=== PATIENT | female | born 1980 | race Caucasian/White ===

== ENCOUNTER → 2018-02-18 07:46 | Outpatient (CLI) | payer MEDICAID ==
[2009-12-10 05:17] VITALS: BMI 32.7
[~2018-02-18 07:46] MED LIST: PRENAVITE1 TAB PO; PROTONIX40 MG
[2018-02-18 08:16] LABS: APPEARANCE HAZY (CLEAR); BILIRUBIN NEGATIVE (NEGATIVE); COLOR YELLOW (YELLOW); GLUCOSE 50 mg/dL (NEGATIVE); KETONE NEGATIVE (NEGATIVE); NITRITE NEGATIVE (NEGATIVE); PROTEIN NEGATIVE (NEGATIVE); UROBILINOGEN NORMAL (NORMAL)
[2018-02-18 08:24] LABS: BACTERIA MANY /hpf (NONE SEEN); EPITHELIAL CELLS 0-5 /hpf (0-5); RED CELLS - URINE RARE /hpf (0-5); WHITE CELLS - URINE 0-5 /hpf (0-5)
[2018-02-18 08:25] LABS: HYALINE CAST RARE /lpf (NONE SEEN); UDS - AMPHET NEGATIVE QUAL (NEGATIVE); UDS - BARB NEGATIVE QUAL (NEGATIVE); UDS - BENZO POSITIVE QUAL (NEGATIVE); UDS - COCAINE NEGATIVE QUAL (NEGATIVE); UDS - OPIATE NEGATIVE QUAL (NEGATIVE); UDS - PCP NEGATIVE QUAL (NEGATIVE); UDS - THC NEGATIVE QUAL (NEGATIVE)
== END | disposition home or self-care (01) ==
LOC: D.LDO 07:46
PROVIDERS: Obstetrics & Gynecology
DX: O26.893 Other specified pregnancy related conditions, third trimester (principal); Z3A.29 29 weeks gestation of pregnancy; R10.9 Unspecified abdominal pain

== ENCOUNTER → 2018-04-01 02:01 | Outpatient (CLI) | payer MEDICAID ==
[2009-12-10 05:17] VITALS: BMI 32.7
[2018-04-01 02:33] LABS: APPEARANCE CLEAR (CLEAR); BILIRUBIN NEGATIVE (NEGATIVE); COLOR YELLOW (YELLOW); GLUCOSE NEGATIVE (NEGATIVE); KETONE NEGATIVE (NEGATIVE); NITRITE NEGATIVE (NEGATIVE); PROTEIN NEGATIVE (NEGATIVE); SPECIFIC GRAVITY 1.015 (1.005-1.020); UROBILINOGEN NORMAL (NORMAL)
[2018-04-12 09:32] VITALS: BMI 31.7
== END | disposition home or self-care (01) ==
LOC: D.LDO 02:01
PROVIDERS: Obstetrics & Gynecology
DX: O26.893 Other specified pregnancy related conditions, third trimester (principal); Z3A.36 36 weeks gestation of pregnancy; R10.30 Lower abdominal pain, unspecified; R12 Heartburn

== ENCOUNTER 2018-04-08 16:33 | Outpatient (CLI) | payer MEDICAID ==
[2009-12-10 05:17] VITALS: BMI 32.7
[2018-04-12 09:32] VITALS: BMI 31.7
== END 2018-04-08 20:47 | disposition other institution (70) ==
LOC: D.LDO 16:33 → D.ER 16:33 → EDSTATUS 20:23 → D.LDO 20:47
DX: O26.893 Other specified pregnancy related conditions, third trimester (principal); Z3A.37 37 weeks gestation of pregnancy

== ENCOUNTER 2018-04-08 20:45 | Emergency (ER) | payer MEDICAID ==
[~2018-04-08] VITALS: Ht 160 cm; Wt 90.7 kg
[2018-04-08 20:50] VITALS: BP 135/69; Ht 160 cm; Wt 90.7 kg
== END 2018-04-08 22:09 | disposition home or self-care (01) ==
LOC: D.ER 20:45
DX: S46.912A Strain of unspecified muscle, fascia and tendon at shoulder and upper arm level, left arm, initial encounter (principal); W18.30XA Fall on same level, unspecified, initial encounter; Y93.89 Activity, other specified; Y92.019 Unspecified place in single-family (private) house as the place of occurrence of the external cause

== ENCOUNTER 2018-04-11 14:10 | Inpatient (IN) | payer MEDICAID ==
[~2018-04-11] VITALS: Ht 160 cm; Wt 81.2 kg
[2018-04-11 15:30] LABS: HEMATOCRIT 30.3 % (36.0-48.0); HEMOGLOBIN 9.9 g/dL (12-16); MCH 29.1 pg (26.0-34.0); MCHC 32.7 g/dL (31.0-37.0); MCV 89.1 fL (80.0-100.0); MEAN PLATELET VOLUME 10.1 fL (7.4-10.4); RBC 3.4 10x6/uL (4.00-5.40); RDW 14.3 % (11.5-14.5); WBC 11.6 10x3/uL (4.8-10.8)
[2018-04-11 15:57] VITALS: BP 124/60; BMI 31.7
[2018-04-11 19:24] LABS: UDS - AMPHET NEGATIVE QUAL (NEGATIVE); UDS - BARB NEGATIVE QUAL (NEGATIVE); UDS - BENZO NEGATIVE QUAL (NEGATIVE); UDS - COCAINE NEGATIVE QUAL (NEGATIVE); UDS - OPIATE NEGATIVE QUAL (NEGATIVE); UDS - PCP NEGATIVE QUAL (NEGATIVE); UDS - THC NEGATIVE QUAL (NEGATIVE)
[2018-04-12 07:27] LABS: RAPID PLASMA REAGIN Non Reactive (Non Reactive)
[2018-04-12 07:41] VITALS: BP 115/56
[2018-04-12 09:32] VITALS: Ht 160 cm; Wt 81.2 kg
[2018-04-12 19:30] VITALS: BP 119/62
[2018-04-13 04:37] VITALS: BP 107/59
[2018-04-13 07:53] VITALS: BP 116/73
== END 2018-04-13 19:26 | disposition home or self-care (01) | DRG 807 ==
LOC: D.LD 14:10
PROVIDERS: Obstetrics & Gynecology
PROC: 10E0XZZ Delivery of Products of Conception, External Approach (ICD-10-PCS; principal; 2018-04-12)
DX: O99.334 Smoking (tobacco) complicating childbirth (principal); Z37.0 Single live birth; Z3A.37 37 weeks gestation of pregnancy; O42.92 Full-term premature rupture of membranes, unspecified as to length of time between rupture and onset of labor; O69.81X0 Labor and delivery complicated by cord around neck, without compression, not applicable or unspecified; O75.89 Other specified complications of labor and delivery; K21.9 Gastro-esophageal reflux disease without esophagitis

== ENCOUNTER → 2019-05-19 17:02 | Outpatient (CLI) | payer MEDICAID ==
[2018-04-12 09:32] VITALS: BMI 31.7
[2019-05-19 18:14] LABS: UDS - AMPHET NEGATIVE QUAL (NEGATIVE); UDS - BARB NEGATIVE QUAL (NEGATIVE); UDS - BENZO NEGATIVE QUAL (NEGATIVE); UDS - COCAINE NEGATIVE QUAL (NEGATIVE); UDS - OPIATE NEGATIVE QUAL (NEGATIVE); UDS - PCP NEGATIVE QUAL (NEGATIVE); UDS - THC NEGATIVE QUAL (NEGATIVE)
[2019-05-19 18:16] LABS: APPEARANCE CLEAR (CLEAR); BILIRUBIN NEGATIVE (NEGATIVE); COLOR STRAW (YELLOW); GLUCOSE NEGATIVE (NEGATIVE); KETONE NEGATIVE (NEGATIVE); NITRITE NEGATIVE (NEGATIVE); PROTEIN NEGATIVE (NEGATIVE); SPECIFIC GRAVITY 1.005 (1.005-1.020); UROBILINOGEN NORMAL (NORMAL)
== END | disposition home or self-care (01) ==
LOC: D.LDO 17:02
PROVIDERS: Obstetrics & Gynecology; ATTEND Family Medicine
DX: O26.899 Other specified pregnancy related conditions, unspecified trimester (principal); Z3A.00 Weeks of gestation of pregnancy not specified

== ENCOUNTER → 2019-05-19 | Emergency (ER) | payer MEDICAID ==
[2018-04-12 09:32] VITALS: BMI 31.7
== END | disposition left against medical advice (07) ==
LOC: CANPREER → D.ER 16:22
DX: R10.9 Unspecified abdominal pain (principal)